=== PATIENT | male | born 1990 | race American Indian/Alaskan Native ===

== ENCOUNTER 2016-06-17 09:43 | Emergency (ER) | payer SELFPAY ==
[2016-06-17 09:55] VITALS: BP 120/78
[2016-06-17] MEDS ORDERED: NORCO 10/325 PO ONE (11:18)
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
== END 2016-06-17 12:32 | disposition home or self-care (01) ==
LOC: ED 09:43
DX: M54.6 Pain in thoracic spine (principal); M54.2 Cervicalgia; M54.5 Low back pain; R07.81 Pleurodynia; F17.200 Nicotine dependence, unspecified, uncomplicated; Z91.02 Food additives allergy status; V49.50XA Passenger injured in collision with unspecified motor vehicles in traffic accident, initial encounter; Y93.89 Activity, other specified; Y99.9 Unspecified external cause status; Y92.410 Unspecified street and highway as the place of occurrence of the external cause
CPT/HCPCS: 71110; 72040; 72070; 72100; 99283